=== PATIENT | female | born 1945 | race African-American/Black ===

== ENCOUNTER 2017-03-09 20:05 | Inpatient (IN) | payer OTHER ==
--- NOTE | 2017-03-09 20:23 | PDOC ---
Rapid Medical Evaluation Chief Complaint: Pain Time Seen by Provider: 03/09/17 20:17 Medical Evaluation: 03/09/17 20:18 I have performed a brief in-person evaluation of this patient. The patient presents with a chief complaint of: Abdominal Pain/Epigastric Pain/ Chest Pain Pertinent physical exam findings:none I have ordered the following: The patient will proceed to the ED for further evaluation. Patient presents to ED c/o sudden onset chest pain, epigastric pain with diaphoresis and near syncope. Patient did not want to call 911 because she did not want her symptoms to be real.
--- NOTE | 2017-03-09 20:33 | PDOC ---
History of Present Illness - History of Present Illness Initial Comments: 03/09/17 20:40 The patient is a 71 year old female, with a significant past medical history of hypertension, diabetes, and a rare blood cancer, who presents to the emergency department s/p near syncopal episode at home this evening. She states she was cooking, turned her body to the left and suddenly felt cool, clammy, and diaphoretic. She states she almost passed out. She denies falling. She reports fecal incontinence during this incident. She reports feeling nauseous at the time of her near-syncopal episdoe, but denies vomiting. At this time she complains of back pain between her scapula. She reports having a CT head in the past for blurred vision which was negative for acute findings. She denies chest pain, shortness of breath, headache and dizziness. She denies fever, chills, nausea, vomit, diarrhea and constipation. She denies dysuria, frequency, urgency and hematuria. Allergies: NKDA <Celestina Gustafson - Last Filed: 03/09/17 23:21> - General History Source: Patient <SadiDonald steen - Last Filed: 03/09/17 23:35> - General Chief Complaint: Pain Stated Complaint: CHEST PAIN Time Seen by Provider: 03/09/17 20:17 Past History <Celestina Gustafson - Last Filed: 03/09/17 23:21> - Past Medical History COPD: No GI Disorders: Yes (GERD) HTN: Yes Other medical history: Lg GB stone - Surgical History Appendectomy: Yes (AP) - Suicide/Smoking/Psychosocial Hx Smoking History: Never smoked <Donald Harris - Last Filed: 03/09/17 23:35> - Past Medical History Allergies/Adverse Reactions: Allergies Allergy/AdvReac Type Severity Reaction Status Date / Time No Known Allergies Allergy Verified 03/09/17 20:17 Home Medications: Ambulatory Orders Aspirin [ASA -] 81 mg PO DAILY 03/09/17 Chlorthalidone 25 mg PO DAILY 03/09/17 Cholecalciferol (Vitamin D3) [Vitamin D3 -] 800 unit PO DAILY 03/09/17 Latanoprost 2.5 ml OP HS 03/09/17 Review of Systems - Review of Systems Able to Perform ROS?: Yes Comments:: 03/09/17 20:40 CONSTITUTIONAL: (+) "clammy, diaphoretic, and cool". Absent: fever, chills, diaphoresis, generalized weakness, malaise, loss of appetite HEENT: Absent: rhinorrhea, nasal congestion, throat pain, throat swelling, difficulty swallowing, mouth swelling, ear pain, eye pain, visual Changes CARDIOVASCULAR: (+) near syncope. Absent: chest pain, syncope, palpitations, irregular heart rate, lightheadedness, peripheral edema RESPIRATORY: Absent: cough, shortness of breath, dyspnea with exertion, orthopnea, wheezing, stridor, hemoptysis GASTROINTESTINAL: (+) nausea. Absent: abdominal pain, abdominal distension, vomiting, diarrhea, constipation, melena, hematochezia GENITOURINARY: Absent: dysuria, frequency, urgency, hesitancy, hematuria, flank pain, genital pain MUSCULOSKELETAL: (+) pain to upper back between scapulae. Absent: arthralgia, joint swelling SKIN: Absent: rash, itching, pallor HEMATOLOGIC/IMMUNOLOGIC: Absent: easy bleeding, easy bruising, lymphadenopathy, frequent infections ENDOCRINE: Absent: unexplained weight gain, unexplained weight loss, heat intolerance, cold intolerance NEUROLOGIC: (+) bowel incontinence and near syncope. Absent: headache, focal weakness or paresthesias, dizziness, unsteady gait, seizure, mental status changes, bladder incontinence. PSYCHIATRIC: Absent: anxiety, depression, suicidal or homicidal ideation, hallucinations. <Celestina Gustafson - Last Filed: 03/09/17 23:21> *Physical Exam - Vital Signs Last Vital Signs Temp Pulse Resp BP Pulse Ox 98 F 84 20 129/90 03/09/17 20:19 03/09/17 20:19 03/09/17 20:19 03/09/17 20:19 - Physical Exam Comments: 03/09/17 20:42 GENERAL: Well developed, well nourished. Awake and alert. No acute distress. HEENT: Normocephalic, atraumatic. PERRLA, EOMI. No conjunctival pallor. Sclera are non- icteric. Moist mucous membranes. Oropharynx is clear. NECK: Supple. Full ROM. No JVD. Carotid pulses 2+ and symmetric, without bruits. No thyromegaly. No lymphadenopathy. CARDIOVASCULAR: Regular rate and rhythm. No murmurs, rubs, or gallops. Distal pulses are 2+ and symmetric. PULMONARY: No evidence of respiratory distress. Lungs clear to auscultation bilaterally. No wheezing, rales or rhonchi. ABDOMINAL: Soft. Non-tender. Non-distended. No rebound or guarding. No organomegaly. Normoactive bowel sounds. MUSCULOSKELETAL Normal range of motion at all joints. No bony deformities or tenderness. No CVA tenderness. EXTREMITIES: No cyanosis. No clubbing. No edema. No calf tenderness. SKIN: Warm and dry. Normal capillary refill. No rashes. No jaundice. NEUROLOGICAL: Alert, awake, appropriate. Cranial nerves 2-12 intact. Normoreflexic in the upper and lower extremities. Normal speech. Toes are down-going bilaterally. Gait is normal without ataxia. PSYCHIATRIC: Cooperative. Good eye contact. Appropriate mood and affect. <Celestina Gustafson - Last Filed: 03/09/17 23:21> - Vital Signs Last Vital Signs Temp Pulse Resp BP Pulse Ox 98 F 84 20 129/90 03/09/17 20:19 03/09/17 20:19 03/09/17 20:19 03/09/17 20:19 <Donald Harris - Last Filed: 03/09/17 23:35> Heart Score/ECG Review - ECG Intrepretation Comment:: 03/09/17 21:22 ECG was read by Dr. Harris at 20:13 Impresion: Normal sinus rhythm Vent rate: 67 bpm KS Interval: 158 ms QTc: 420 ms <Celestina Gustafson - Last Filed: 03/09/17 23:21> ED Treatment Course - LABORATORY CBC & Chemistry Diagram: 03/09/17 20:33 03/09/17 20:33 <Celestina Gustafson - Last Filed: 03/09/17 23:21> - LABORATORY CBC & Chemistry Diagram: 03/09/17 20:33 03/09/17 20:33 <Donald Harris - Last Filed: 03/09/17 23:35> Medical Decision Making - Medical Decision Making 03/09/17 23:21 EXAM#: TYPE/EXAM: RESULT: [id number] CT/HEAD CT WITHOUT CONTRAST Cranial CT without contrast Clinical information: dizziness Multiplanar imaging was performed. Intravenous contrast was not administered. No intracranial hemorrhage is seen. There is no discrete infarct within the limitations of CT. No gross mass lesion is noted. There is no definite abnormal attenuation. No extra-axial fluid collection is noted. Involutional changes are seen with minimal ventricular dilatation. No calvarial defect is noted. Impression: No CT evidence of acute intracranial pathology. A small amount of fluid is seen within the left mastoid air cells inferiorly. Reported By: Lexx Chan MD 03/09/17 [id number] <Celestina Gustafson - Last Filed: 03/09/17 23:21> - Medical Decision Making 03/09/17 23:29 Dr. Harris: The scribe's documentation has been prepared under my direction and personally reviewed by me in its entirery. I confirm that the note above accurately reflects all work, treatment, procedures, and medical decision making performed by me. Originally ordered a ct scan to visualize the aorta. However, BUN/ Cr are very high. Pt states she has no h/o renal issues. Will admit pt and decide next course for evaluation. <Donald Harris - Last Filed: 03/09/17 23:35> *DC/Admit/Observation/Transfer - Attestations Scribe Attestion: 03/09/17 20:42 Documentation prepared by Celestina Gustafson, acting as medical record coder for Donald Harris DO <Celestina Gustafson - Last Filed: 03/09/17 23:21> - Discharge Dispostion Admit: Yes <Donald Harris - Last Filed: 03/09/17 23:35> Diagnosis at time of Disposition: Near syncope - Discharge Dispostion Condition at time of disposition: Stable
[2017-03-09 21:28] LABS: URINE APPEARANCE CLOUDY; URINE BILIRUBIN NEGATIVE (NEGATIVE); URINE BLOOD NEGATIVE (NEGATIVE); URINE COLOR AMBER; URINE GLUCOSE (UA) NEGATIVE (NEGATIVE); URINE KETONE TRACE (NEGATIVE); URINE NITRITE NEGATIVE (NEGATIVE); URINE PROTEIN NEGATIVE (NEGATIVE); URINE UROBILINOGEN 4.0 E.U/dl mg/dL (0.2-1.0)
[2017-03-09 21:31] LABS: BASOPHIL 0.8 % (0-2.0); EOSINOPHIL 0.4 % (0-4.5); MCH 31.9 pg (25.7-33.7); MCHC 34.8 g/dl (32.0-36.0); MEAN CELL VOLUME 91.6 fl (80-96); MEAN PLT VOLUME 9.2 fl (7.5-11.1); NEUTROPHILS 59.2 % (42.8-82.8); PLATELET COUNT 204 K/MM3 (134-434); RDW 13.9 % (11.6-15.6); WHITE BLOOD COUNT 7.2 K/mm3 (4.0-10.0)
[2017-03-09 21:42] LABS: INR 1.07 (0.82-1.09); PROTHROMBIN TIME (PATIENT) 12.1 SEC (9.98-11.88)
[2017-03-09 22:47] LABS: MAGNESIUM 1.9 mg/dL (1.8-2.4)
[2017-03-09 23:10] LABS: ALBUMIN 3.6 g/dl (3.4-5.0); ANION GAP 8 (8-16); CALCIUM 9.3 mg/dL (8.5-10.1); CO2 28 mmol/L (21-32); CREATININE 2.3 mg/dL (0.55-1.02); GLUCOSE,RANDOM 140 mg/dL (74-106); SGOT/AST 16 U/L (15-37); SGPT/ALT 23 U/L (12-78)
[2017-03-09 23:14] LABS: ALK PHOS 105 U/L (45-117); BILIRUBIN,TOTAL 0.4 mg/dL (0.2-1.0); CPK 137 IU/L (26-192); TOT PROT 7.5 g/dl (6.4-8.2); TROPONIN I < 0.02 ng/ml (0.00-0.05)
--- NOTE | 2017-03-10 00:34 | PN ---
Teaching Attending Note Name of Resident: Claudia Benedict ATTENDING PHYSICIAN STATEMENT I saw and evaluated the patient. I reviewed the resident's note and discussed the case with the resident. I agree with the resident's findings and plan as documented. SUBJECTIVE: 71 year old female that presents today c/o acute onset of sub sternal chest discomfort, 5/10 in intensity , non radiating , associated with acute onset of SOB, nausea , diaphoresis and followed by pre syncopal event x 3. She used ice pack to her neck which alleviated her symptoms partially and she was able to get a ride to ED . She reports history of 4 days of upper respiratory " typical sinus " infection, loss of appetite and nausea preceding to todays event . ROS is significant for b/l calve pain PMH HTN Cholelithiasis Arthritis Knee Leukemia vs Lymphoma ( patient is not sure but states blood malignancy ) Appendectomy Family History Lung Cancer - sister Breast Cancer - cousin DVT - mother OBJECTIVE: Vital Signs Temperature 98 F 03/09/17 20:19 Pulse Rate 84 03/09/17 20:19 Respiratory Rate 20 03/09/17 20:19 Blood Pressure 129/90 03/09/17 20:19 O2 Sat by Pulse Oximetry (%) CARDIOVASCULAR: Regular rate and rhythm. No murmurs, rubs, or gallops. Distal pulses are 2+ and symmetric. PULMONARY: No evidence of respiratory distress. Lungs clear to auscultation bilaterally. No wheezing, rales or rhonchi. EXTREMITIES: No cyanosis. No clubbing. No edema. CBC, BMP 03/09/17 20:33 03/09/17 20:33 ASSESSMENT AND PLAN: 1. Acute Renal Failure - likely secondary to severe dehydration due to low po intake and diuretics. - hold diuretics - IVF 2L of NS at 125/hr then encourage PO - repeat BMP - obtain UA - If no improvement - will get US and urine studies 2. Chest discomfort associated with SOB and pre syncopal episode( transient hypotension) - completely resolved . Atypical presentation for cardiac pain . EKG - no acute findings . PE small can not be excluded . DDimer could be false positive - US doppler R/o DVT - telemetry - repeat cardiac enzyme - Repeat EKG for chest pain -repeat troponin 3.HTN- suboptimal control - hold diuretics - lopressor for SBP > 165 DBP above 90 4. History of malignancy of unknown type ( states its blood) - under care of her oncologist - will obtain prior records 5. DVT PPX - Heparin SC
--- NOTE | 2017-03-10 00:54 | HP ---
CHIEF COMPLAINT: Presyncopial episode, chest pain PCP: n/a HISTORY OF PRESENT ILLNESS: Patient is a 71 yo F with a PMHx of HTN, Arthritis, cholelithiasis, HPV, chronic sinusitis, rare blood cancer (2013), presented today because of 5/10, non-radiating, substernal, chest pain with dizziness and SOB that started around 7pm, followed by a presyncopal epiosde while walking in the kitchen. She also reports having R jaw pain and sweating. Patient said she never experienced similar symptoms before. She applied Ice on her neck which alleviated the symptoms. She also reports she had sinusitis since Tuesday with fever and nausea, and has been bed bound since then. She also complains of decreased appetite and poor oral intake since Tuesday. She also endorsed intermittent Left Lower extremity calf pain. Patient is on Chlorthalidone 25mg for HTN. Says she has noticed an increase in urinary frequency. Patient denies LOC, cough, abdominal pain, diarrhea, vertigo, numbness and tingling. ER course was notable for: (1) Creatinine 2.3 (2) EKG: Normal sinus rhythm, negative trops (3) VS WNL, afebrile Recent Travel: n/a PAST MEDICAL HISTORY: HTN, Arthritis, HPV, chronic sinusitis, cholelithiasis, rare blood cancer (2013) PAST SURGICAL HISTORY: appendectomy 1959, tonsillectomy 1966, ganglion cyst 1972 , bone marrow sample (08/01) Social History: Smoking: n/a Alcohol: n/a Drugs: n/a Family History: sister with lung cancer, mother from lung clot in her 70' s. Allergies No Known Allergies Allergy (Verified 03/09/17 20:17) HOME MEDICATIONS: Home Medications Medication Instructions Recorded Aspirin [ASA -] 81 mg PO DAILY 03/09/17 Chlorthalidone 25 mg PO DAILY 03/09/17 Cholecalciferol (Vitamin D3) 800 unit PO DAILY 03/09/17 [Vitamin D3 -] Latanoprost 2.5 ml OP HS 03/09/17 REVIEW OF SYSTEMS CONSTITUTIONAL: fever, diaphoresis, loss of appetite Absent: chills, generalized weakness, malaise, weight change HEENT: Absent: rhinorrhea, nasal congestion, throat pain, throat swelling, difficulty swallowing, mouth swelling, ear pain, eye pain, visual changes CARDIOVASCULAR: lightheadedness, chest pain Absent: syncope, palpitations, irregular heart rate, peripheral edema RESPIRATORY: SOB Absent: cough, dyspnea with exertion, orthopnea, wheezing, stridor, hemoptysis GASTROINTESTINAL: nausea Absent: abdominal pain, abdominal distension, vomiting, diarrhea, constipation, melena, hematochezia GENITOURINARY: increased frequency Absent: dysuria, urgency, hesitancy, hematuria, flank pain, genital pain MUSCULOSKELETAL: Absent: myalgia, arthralgia, joint swelling, back pain, neck pain SKIN: Absent: rash, itching, pallor HEMATOLOGIC/IMMUNOLOGIC: Absent: easy bleeding, easy bruising, lymphadenopathy, frequent infections ENDOCRINE: Absent: unexplained weight gain, unexplained weight loss, heat intolerance, cold intolerance NEUROLOGIC: Absent: headache, focal weakness or paresthesias, dizziness, unsteady gait, seizure, mental status changes, bladder or bowel incontinence PSYCHIATRIC: Absent: anxiety, depression, suicidal or homicidal ideation, hallucinations. PHYSICAL EXAMINATION Vital Signs - 24 hr 03/09/17 20:19 Temperature 98 F Pulse Rate 84 Respiratory 20 Rate Blood Pressure 129/90 GENERAL: Awake, alert, and fully oriented, in no acute distress. HEAD: Normal with no signs of trauma. EYES: Pupils equal, round and reactive to light, extraocular movements intact, sclera anicteric EARS, NOSE, THROAT: nares patent, oropharynx clear without exudates. Dry mucous membranes NECK: supple LUNGS: Breath sounds equal, clear to auscultation bilaterally. No wheezes, and no crackles. No accessory muscle use. HEART: Regular rate and rhythm, normal S1 and S2 without murmur, rub or gallop. ABDOMEN: Soft, nontender, not distended, normoactive bowel sounds, no guarding MUSCULOSKELETAL: Normal range of motion at all joints. No CVA tenderness. UPPER EXTREMITIES: 2+ pulses, warm, well-perfused. No cyanosis. No clubbing. No peripheral edema. LOWER EXTREMITIES: 2+ pulses, warm, well-perfused. No calf tenderness. No peripheral edema. NEUROLOGICAL: Cranial nerves II-XII intact. Normal speech. PSYCHIATRIC: Cooperative. Good eye contact. Appropriate mood and affect. SKIN: Warm, dry Laboratory Results - last 24 hr 03/09/17 03/09/17 03/09/17 20:33 20:33 20:33 WBC 7.2 RBC 3.50 L Hgb 11.1 Hct 32.0 L MCV 91.6 MCH 31.9 MCHC 34.8 RDW 13.9 Plt Count 204 MPV 9.2 Neutrophils % 59.2 Lymphocytes % 25.8 Monocytes % 13.8 H Eosinophils % 0.4 Basophils % 0.8 PT with INR INR Sodium 140 Potassium 3.8 Chloride 104 Carbon Dioxide 28 Anion Gap 8 BUN 36 H Creatinine 2.3 H Creat Clearance w eGFR 21.02 Random Glucose 140 H Calcium 9.3 Magnesium Total Bilirubin 0.4 AST 16 ALT 23 Alkaline Phosphatase 105 Creatine Kinase 137 Troponin I < 0.02 Total Protein 7.5 Albumin 3.6 Lipase Urine Color Urine Appearance Urine pH Ur Specific [place] Urine Protein Urine Glucose (UA) Urine Ketones Urine Blood Urine Nitrite Urine Bilirubin Urine Urobilinogen Blood Type O POSITIVE Antibody Screen Negative 03/09/17 03/09/17 03/09/17 20:33 20:33 21:15 WBC RBC Hgb Hct MCV MCH MCHC RDW Plt Count MPV Neutrophils % Lymphocytes % Monocytes % Eosinophils % Basophils % PT with INR 12.10 H INR 1.07 Sodium Potassium Chloride Carbon Dioxide Anion Gap BUN Creatinine Creat Clearance w eGFR Random Glucose Calcium Magnesium 1.9 Total Bilirubin AST ALT Alkaline Phosphatase Creatine Kinase Troponin I Total Protein Albumin Lipase 224 Urine Color Missy Urine Appearance Cloudy Urine pH 5.0 Ur Specific [place] 1.024 Urine Protein Negative Urine Glucose (UA) Negative Urine Ketones Trace H Urine Blood Negative Urine Nitrite Negative Urine Bilirubin Negative Urine Urobilinogen 4.0 e.u/dl H Blood Type Antibody Screen ASSESSMENT/PLAN: Patient is a 71 yo F with a PMHx of HTN, Arthritis, HPV, "rare blood cancer ( 2013)", presented to the ED because of pre-syncopial episode and chest pain. #Presyncopial episode - volume depletion vs PE -on chlorothalidone 25mg daily PO, which could be possible cause of dehydration. Recent poor oral intake and appetite since Tuesday. -Venous duplex b/l LE to R/O DVT as patient has multiple cormorbidites (obesity , decreased physical activity, hx of cancer, Fx history) -one episode of presyncope, will keep in tele for monitoring of any overnight event. If any event overnight, will order cardiac workup. -IV Fluids, normal saline 100 cc/ hour -Monitor Vitals, orthostatic BP -Follow up AM labs #Acute Kidney Injury -likely prerenal azotemia -creatinine 2.3 -IV fluids, Normal Saline 100cc/hour -follow up AM labs -monitor intake/output -if creatinine does not improve after IV fluids, will need to order renal workup #Atypical Chest pain -EKG unremarkable for acute changes -Trop negative -Pain more localized towards epigastric, right sub-diaphragmatic -obese, normally ambulates, but has decreased daily physical activity since Tuesday while sick. -venous duplex b/l lower extremities -tele, cardiac monitoring -cont ASA 81mg (home med) -repeat EKG trop #History of Cancer -Unknown type, patient says "rare blood cancer". -Oncologist: Dr. Carlin [phone] -Obtain records from oncologist #HTN -held chlorothalidone -will monitor BP #GERD -continue home med Omeprazole 20mg #Glaucoma -cont home med, Latanoprost #History of Chronic Sinusitis #FEN -IV fluids, NS 100 cc/hour -WNL -Sodium restricted diet #PPX: Heparin SQ TID #Dispo: Tele Visit type - Emergency Visit Emergency Visit: Yes Care time: The patient presented to the Emergency Department on the above date and was hospitalized for further evaluation of their emergent condition. - New Patient This patient is new to me today: Yes Date on this admission: 03/10/17 - Critical Care Critical Care patient: No
[2017-03-10] MEDS ORDERED: PANTOPRAZOLE SODIUM 40 MG/100 ML BAG IVPB ONE (02:12)
[2017-03-10] MEDS: SODIUM CHLORIDE 1,000 ML IV SCH ×2 (02:22→12:40)
[2017-03-10] MEDS: PANTOPRAZOLE 40 MG TABLET (FP) PO SCH ×2 (02:22→09:17)
[2017-03-10 03:46] VITALS: BMI 40.6
[2017-03-10] MEDS: HEPARIN NA (PORCINE) 5,000 UNITS/ML 1ML VIAL SQ SCH ×3 (06:19→21:11)
[2017-03-10 08:08] LABS: MCH 30.8 pg (25.7-33.7); MCHC 33.4 g/dl (32.0-36.0); MEAN CELL VOLUME 92.4 fl (80-96); PLATELET COUNT 216 K/MM3 (134-434); RDW 13.4 % (11.6-15.6); WHITE BLOOD COUNT 7.6 K/mm3 (4.0-10.0)
[2017-03-10 08:12] LABS: ALBUMIN 3.2 g/dl (3.4-5.0); ALK PHOS 100 U/L (45-117); ANION GAP 7 (8-16); BILIRUBIN,TOTAL 0.4 mg/dL (0.2-1.0); CALCIUM 8.8 mg/dL (8.5-10.1); CO2 27 mmol/L (21-32); CREATININE 1.9 mg/dL (0.55-1.02); GLUCOSE,RANDOM 103 mg/dL (74-106); MAGNESIUM 1.9 mg/dL (1.8-2.4); PHOSPHOROUS 3.7 mg/dL (2.5-4.9); SGOT/AST 12 U/L (15-37); SGPT/ALT 21 U/L (12-78); TOT PROT 7.1 g/dl (6.4-8.2)
[2017-03-10] MEDS: ASPIRIN 81 MG CHEWABLE TABLETS PO SCH (09:17)
[2017-03-10] MEDS ORDERED: CHOLECALCIFEROL (VITAMIN D3) 400 UNIT TABLET (FP) PO SCH (10:00)
[2017-03-10 10:37] LABS: URINE LEUK ESTERASE Negative (NEGATIVE)
--- NOTE | 2017-03-10 12:49 | PN ---
Progress Note (short form) - Note Progress Note: Subjective: Denies CP , or SOB , reports being dry for days , had substernal CP x 30 min then improved . she reports feeling light headed with ambulation and standing up. Objective: Vital Signs: Last Vital Signs Temp Pulse Resp BP Pulse Ox 98.2 F 82 18 129/78 98 03/10/17 09:00 03/10/17 09:00 03/10/17 09:00 03/10/17 09:00 03/10/17 09:00 Laboratory Results - last 24 hr 03/09/17 03/09/17 03/09/17 20:33 20:33 20:33 WBC 7.2 RBC 3.50 L Hgb 11.1 Hct 32.0 L MCV 91.6 MCH 31.9 MCHC 34.8 RDW 13.9 Plt Count 204 MPV 9.2 Neutrophils % 59.2 Lymphocytes % 25.8 Monocytes % 13.8 H Eosinophils % 0.4 Basophils % 0.8 PT with INR INR Sodium 140 Potassium 3.8 Chloride 104 Carbon Dioxide 28 Anion Gap 8 BUN 36 H Creatinine 2.3 H Creat Clearance w eGFR 21.02 Random Glucose 140 H Calcium 9.3 Phosphorus Magnesium Total Bilirubin 0.4 AST 16 ALT 23 Alkaline Phosphatase 105 Creatine Kinase 137 Troponin I < 0.02 Total Protein 7.5 Albumin 3.6 Lipase Urine Color Urine Appearance Urine pH Ur Specific [place] Urine Protein Urine Glucose (UA) Urine Ketones Urine Blood Urine Nitrite Urine Bilirubin Urine Urobilinogen Ur Leukocyte Esterase Blood Type O POSITIVE Antibody Screen Negative 03/09/17 03/09/17 03/09/17 20:33 20:33 21:15 WBC RBC Hgb Hct MCV MCH MCHC RDW Plt Count MPV Neutrophils % Lymphocytes % Monocytes % Eosinophils % Basophils % PT with INR 12.10 H INR 1.07 Sodium Potassium Chloride Carbon Dioxide Anion Gap BUN Creatinine Creat Clearance w eGFR Random Glucose Calcium Phosphorus Magnesium 1.9 Total Bilirubin AST ALT Alkaline Phosphatase Creatine Kinase Troponin I Total Protein Albumin Lipase 224 Urine Color Missy Urine Appearance Cloudy Urine pH 5.0 Ur Specific [place] 1.024 Urine Protein Negative Urine Glucose (UA) Negative Urine Ketones Trace H Urine Blood Negative Urine Nitrite Negative Urine Bilirubin Negative Urine Urobilinogen 4.0 e.u/dl H Ur Leukocyte Esterase Negative Blood Type Antibody Screen 03/10/17 03/10/17 03/10/17 07:30 07:30 07:30 WBC 7.6 RBC 3.30 L Hgb 10.2 L Hct 30.5 L MCV 92.4 MCH 30.8 MCHC 33.4 RDW 13.4 Plt Count 216 MPV 9.0 Neutrophils % Lymphocytes % Monocytes % Eosinophils % Basophils % PT with INR INR Sodium 140 Potassium 3.7 Chloride 106 Carbon Dioxide 27 Anion Gap 7 L BUN 36 H Creatinine 1.9 H Creat Clearance w eGFR 26.21 Random Glucose 103 D Calcium 8.8 Phosphorus 3.7 Magnesium 1.9 Total Bilirubin 0.4 AST 12 L D ALT 21 Alkaline Phosphatase 100 Creatine Kinase Troponin I < 0.02 Total Protein 7.1 Albumin 3.2 L Lipase Urine Color Urine Appearance Urine pH Ur Specific [place] Urine Protein Urine Glucose (UA) Urine Ketones Urine Blood Urine Nitrite Urine Bilirubin Urine Urobilinogen Ur Leukocyte Esterase Blood Type Antibody Screen Physical Exam: NAD , dry MM , round equal reactive pupils Cv : RRR, nO JVD . 2/6 SM at RUSB, and RUSB. Lungs : CTAB ABd: soft, Obese , NT, ND LE : no edema or erythema. Assessment/Plan: 71 y/o lady with h/o HTN, chronic synusitis , questionable blood disorder who presented with chest discomfort and pain with light headedness. She was found to have acute renal failure 1- CP: unlikely ACS . could be due to orthostatic hypotension , or arrhythmias . EKG with NSR and q wave in III. tele with PVCs. despite the possibiility of blood malignancy , PE is unlikely , WELLS score of 0 . she has NO tachycardia , no SOB , no Hypoxia and no other signs . US Neg for DVT - cont tele - treat volume depletion - orthostatic VS - echo 2- JEOVANNY : due to prerenal azotemia, given being on thiazide and improvement in cr with IVF - check urine electrolytes for Fe Ura , unfortunately , not done before IVF - check renal US - cont IVF - Hold hydrochlorothyaside 3- h/o Possible hematologic malignancy, confirm withher commissioner of relocation services tomorrow Home meds were reviewed with her and updated in EMR 3- Visit type - Emergency Visit Emergency Visit: Yes ED Registration Date: 03/09/17 Care time: The patient presented to the Emergency Department on the above date and was hospitalized for further evaluation of their emergent condition. - New Patient This patient is new to me today: Yes Date on this admission: 03/10/17 - Critical Care Critical Care patient: No
[2017-03-10 20:12] LABS: URINE CREATININE 55.4 mg/dL (20-320)
[2017-03-10] MEDS ORDERED: PT OWN MED DRAWER 7, Y5N ONE (21:07)
[2017-03-10] MEDS: LATANOPROST 0.005% OPHTH SOLN 2.5ML BOTTLE OU SCH (21:11)
--- NOTE | 2017-03-10 21:57 | EKG ---
Test Reason : Blood Pressure : / mmHG Vent. Rate : 067 BPM Atrial Rate : 067 BPM P-R Int : 158 ms QRS Dur : 086 ms QT Int : 398 ms P-R-T Axes : 009 015 038 degrees QTc Int : 420 ms NORMAL SINUS RHYTHM NORMAL ECG NO PREVIOUS ECGS AVAILABLE Confirmed by MIC RAYO MD ([id number]) on 03/10/2017 9:56:52 PM Referred By: Confirmed By:MIC RAYO MD
[2017-03-11] MEDS: SODIUM CHLORIDE 1,000 ML IV SCH (00:56)
[2017-03-11] MEDS: HEPARIN NA (PORCINE) 5,000 UNITS/ML 1ML VIAL SQ SCH ×3 (05:52→21:18)
[2017-03-11 07:55] LABS: ANION GAP 9 (8-16); CALCIUM 8.8 mg/dL (8.5-10.1); CO2 23 mmol/L (21-32); CREATININE 1.4 mg/dL (0.55-1.02); GLUCOSE,RANDOM 102 mg/dL (74-106)
[2017-03-11] MEDS ORDERED: PT OWN MED DRAWER 7, Y5N ONE ×2 (09:30→21:17)
[2017-03-11] MEDS: SODIUM CHLORIDE 0.45% 1,000 ML IV SCH (10:38)
[2017-03-11] MEDS: PANTOPRAZOLE 40 MG TABLET (FP) PO SCH (10:39)
[2017-03-11] MEDS: ASPIRIN 81 MG CHEWABLE TABLETS PO SCH (10:39)
--- NOTE | 2017-03-11 16:42 | PN ---
Physical Exam: SUBJECTIVE: Patient seen and examined. Pt feels well today. Pt denies chest pain, sob, fever, chills. No overnight events. OBJECTIVE: Vital Signs Period Temp Pulse Resp BP Sys/Crane Pulse Ox Last 24 Hr 97.5 F-98.2 F 66-82 18-20 118-152/58-74 98-98 GENERAL: The patient is awake, alert, and fully oriented, in no acute distress. HEAD: Normal with no signs of trauma. EYES: Extraocular movements intact, sclera anicteric, conjunctiva clear. No ptosis. ENT: Moist mucous membranes. NECK: Trachea midline, supple. LUNGS: Breath sounds equal, clear to auscultation bilaterally, no wheezes, no crackles, no accessory muscle use. HEART: Regular rate and rhythm, S1, S2 without murmur, rub or gallop. ABDOMEN: Soft, nontender, nondistended. EXTREMITIES: Warm, well-perfused, no edema. NEUROLOGICAL: Cranial nerves II through XII grossly intact. Normal speech, steady gait. PSYCH: Normal mood, normal affect. SKIN: Warm, dry, normal turgor, no rashes or lesions noted Laboratory Results - last 24 hr 03/10/17 03/11/17 15:00 06:00 Sodium 142 Potassium 4.0 Chloride 110 H Carbon Dioxide 23 Anion Gap 9 BUN 23 H D Creatinine 1.4 H D Random Glucose 102 Calcium 8.8 Ur Random Sodium 41 Ur Random Urea Nitrogn 377 Urine Creatinine 55.4 Active Medications Generic Name Dose Route Start Last Admin Trade Name Freq PRN Reason Stop Dose Admin Aspirin 81 mg 03/10/17 10:00 03/11/17 10:39 Asa - PO 81 mg DAILY JUICE Administration Heparin Sodium (Porcine) 5,000 unit 03/10/17 06:00 03/11/17 15:45 Heparin - SQ 5,000 unit TID JUICE Administration Sodium Chloride 1,000 mls @ 100 mls/hr 03/11/17 10:30 03/11/17 10:38 1/2 Normal Saline IV 100 mls/hr ASDIR JUICE Administration Latanoprost 1 drop 03/10/17 22:00 03/10/17 21:11 Xalatan 0.005% Eye Drops - OU 1 drop HS JUICE Administration Pantoprazole Sodium 40 mg 03/10/17 01:45 03/11/17 10:39 Protonix - PO 40 mg DAILY JUICE Administration IMAGIN03/09/[address] -> no acute intracranial pathology. Small amount of fluid in Left mastoid air cells inferiorly. 03/09/17 CXR -> no acute pathology 03/10/17 Vascular Study -> no DVTs in isaias LE 03/11/17 Renal US -> morphologically normal kidneys with no evidence of hydronephrosis or acute pathology. 03/11/17 Echo -> normal Left ventricular systolic function. ASSESSMENT/PLAN: 71yo F with PMH of htn, chronic sinusitis, presented with substernal chest pain , admitted for ACS rule-out. # chest pain - not likely ACS - improved - echo reveals normal Left ventricular systolic function # JEOVANNY - improved - Renal US reveals morphologically normal kidneys - continue IVFs - continue to hold Chlorthalidone # hx of possible hematologic malignancy - Release of Patient Information form completed and faxed to Dr. Lance Yusuf's office (fax #: [phone]), confirmation received. Office was called and notified that form was coming and what information was being requested. No records were faxed to the hospital. # FEN - Fluids: 1/2 NS @ 100 ml/hr - Electrolytes: wnl, continue to monitor - Nutrition: low sodium diet # DVT prophylaxis - Heparin TID Visit type - Emergency Visit Emergency Visit: Yes ED Registration Date: 03/09/17 Care time: The patient presented to the Emergency Department on the above date and was hospitalized for further evaluation of their emergent condition. - New Patient This patient is new to me today: Yes Date on this admission: 03/11/17 - Critical Care Critical Care patient: No
--- NOTE | 2017-03-11 18:20 | PN ---
Teaching Attending Note Name of Resident: Monique Botello ATTENDING PHYSICIAN STATEMENT I saw and evaluated the patient. I reviewed the resident's note and discussed the case with the resident. I agree with the resident's findings and plan as documented. SUBJECTIVE: Patient feels better with no acute distress, no shortness of breath, no nausea or vomiting. No chest pain. OBJECTIVE: Vital Signs Temperature 98.9 F 03/11/17 18:06 Pulse Rate 71 03/11/17 18:06 Respiratory Rate 20 03/11/17 18:06 Blood Pressure 133/71 03/11/17 18:06 O2 Sat by Pulse Oximetry (%) 100 03/11/17 09:00 CBCD WBC 7.6 K/mm3 (4.0-10.0) 03/10/17 07:30 RBC 3.30 M/mm3 (3.60-5.2) L 03/10/17 07:30 Hgb 10.2 GM/dL (10.7-15.3) L 03/10/17 07:30 Hct 30.5 % (32.4-45.2) L 03/10/17 07:30 MCV 92.4 fl (80-96) 03/10/17 07:30 MCHC 33.4 g/dl (32.0-36.0) 03/10/17 07:30 RDW 13.4 % (11.6-15.6) 03/10/17 07:30 Plt Count 216 K/MM3 (134-434) 03/10/17 07:30 MPV 9.0 fl (7.5-11.1) 03/10/17 07:30 CMP Sodium 142 mmol/L (136-145) 03/11/17 06:00 Potassium 4.0 mmol/L (3.5-5.1) 03/11/17 06:00 Chloride 110 mmol/L (98-107) H 03/11/17 06:00 Carbon Dioxide 23 mmol/L (21-32) 03/11/17 06:00 Anion Gap 9 (8-16) 03/11/17 06:00 BUN 23 mg/dL (7-18) H D 03/11/17 06:00 Creatinine 1.4 mg/dL (0.55-1.02) H D 03/11/17 06:00 Creat Clearance w eGFR 26.21 (>60) 03/10/17 07:30 Random Glucose 102 mg/dL (74-106) 03/11/17 06:00 Calcium 8.8 mg/dL (8.5-10.1) 03/11/17 06:00 Total Bilirubin 0.4 mg/dL (0.2-1.0) 03/10/17 07:30 AST 12 U/L (15-37) L D 03/10/17 07:30 ALT 21 U/L (12-78) 03/10/17 07:30 Alkaline Phosphatase 100 U/L (45-117) 03/10/17 07:30 Total Protein 7.1 g/dl (6.4-8.2) 03/10/17 07:30 Albumin 3.2 g/dl (3.4-5.0) L 03/10/17 07:30 CARDIAC ENZYMES Creatine Kinase 137 IU/L (26-192) 03/09/17 20:33 Troponin I < 0.02 ng/ml (0.00-0.05) 03/10/17 07:30 Current Medications Generic Name Dose Route Start Last Admin Trade Name Michaelq PRN Reason Stop Dose Admin Aspirin 81 mg 03/10/17 10:00 03/11/17 10:39 Asa - PO 81 mg DAILY JUICE Administration Heparin Sodium (Porcine) 5,000 unit 03/10/17 06:00 03/11/17 15:45 Heparin - SQ 5,000 unit TID JUICE Administration Sodium Chloride 1,000 mls @ 100 mls/hr 03/11/17 10:30 03/11/17 10:38 1/2 Normal Saline IV 100 mls/hr ASDIR JUICE Administration Latanoprost 1 drop 03/10/17 22:00 03/10/17 21:11 Xalatan 0.005% Eye Drops - OU 1 drop HS JUICE Administration Pantoprazole Sodium 40 mg 03/10/17 01:45 03/11/17 10:39 Protonix - PO 40 mg DAILY JUICE Administration Home Medications Medication Instructions Recorded Aspirin [ASA -] 81 mg PO DAILY 03/09/17 Chlorthalidone 25 mg PO DAILY 03/09/17 Latanoprost 2.5 ml OP HS 03/09/17 Omeprazole 20 mg PO DAILY 03/10/17 Laboratory Tests 03/09/17 03/10/17 03/10/17 20:33 07:30 07:30 BUN 36 H 36 H Creatinine 2.3 H 1.9 H Troponin I < 0.02 < 0.02 03/11/17 06:00 BUN 23 H D Creatinine 1.4 H D Troponin I Physical Exam: NAD , dry MM , round equal reactive pupils Cv : RRR, no JVD . 2/6 SM , S1S2 positive Lungs : CTAB ABd: soft, Obese , NT, ND LE : no edema or erythema. Neuro:[id number] Assessment/Plan: Patient is a 71 y/o lady with h/o HTN, chronic synusitis , questionable blood disorder who presented with chest discomfort and pain with light headedness. She was found to have acute renal failure # Atypical CP: 2 sets of troponin negative , EKG NSR, q wave in lead 3, PVCs, Echo is pending # Acute renal failure IVF improving due to dehydration. will continue to hole Htcz, check renal US # Acute dehydration on IVF continue # Patient states that she has some blood cancer but being watched , was never treated for it. Home meds were reviewed with her and updated in EMR DVT Px: heparin sq
[2017-03-11] MEDS: LATANOPROST 0.005% OPHTH SOLN 2.5ML BOTTLE OU SCH (21:18)
[2017-03-12] MEDS: HEPARIN NA (PORCINE) 5,000 UNITS/ML 1ML VIAL SQ SCH ×3 (05:34→21:22)
[2017-03-12] MEDS: SODIUM CHLORIDE 0.45% 1,000 ML IV SCH (05:35)
[2017-03-12] MEDS: ASPIRIN 81 MG CHEWABLE TABLETS PO SCH (09:31)
[2017-03-12] MEDS: PANTOPRAZOLE 40 MG TABLET (FP) PO SCH (09:31)
--- NOTE | 2017-03-12 09:50 | PN ---
Progress Note (short form) - Note Progress Note: Patient is feeling better, with no acute distress. No shortness of breath, no nausea or vomiting, tolerating diet well. Vital Signs Temperature 98.1 F 03/12/17 06:00 Pulse Rate 69 03/12/17 06:00 Respiratory Rate 20 03/12/17 06:00 Blood Pressure 142/69 03/12/17 06:00 O2 Sat by Pulse Oximetry (%) 96 03/11/17 21:00 GENERAL: The patient is awake, alert, and fully oriented, in no acute distress. HEAD: Normal with no signs of trauma. EYES: Extraocular movements intact, sclera anicteric, conjunctiva clear. No ptosis. ENT: Moist mucous membranes. NECK: Trachea midline, supple. LUNGS: Breath sounds equal, clear to auscultation bilaterally, no wheezes, no crackles, no accessory muscle use. HEART: Regular rate and rhythm, S1, S2 without murmur, rub or gallop. ABDOMEN: Soft, nontender, nondistended. EXTREMITIES: Warm, well-perfused, no edema. NEUROLOGICAL: Cranial nerves II through XII grossly intact. Normal speech, steady gait. PSYCH: Normal mood, normal affect. SKIN: Warm, dry, normal turgor, no rashes or lesions noted CBCD WBC 7.6 K/mm3 (4.0-10.0) 03/10/17 07:30 RBC 3.30 M/mm3 (3.60-5.2) L 03/10/17 07:30 Hgb 10.2 GM/dL (10.7-15.3) L 03/10/17 07:30 Hct 30.5 % (32.4-45.2) L 03/10/17 07:30 MCV 92.4 fl (80-96) 03/10/17 07:30 MCHC 33.4 g/dl (32.0-36.0) 03/10/17 07:30 RDW 13.4 % (11.6-15.6) 03/10/17 07:30 Plt Count 216 K/MM3 (134-434) 03/10/17 07:30 MPV 9.0 fl (7.5-11.1) 03/10/17 07:30 CMP Sodium 142 mmol/L (136-145) 03/11/17 06:00 Potassium 4.0 mmol/L (3.5-5.1) 03/11/17 06:00 Chloride 110 mmol/L (98-107) H 03/11/17 06:00 Carbon Dioxide 23 mmol/L (21-32) 03/11/17 06:00 Anion Gap 9 (8-16) 03/11/17 06:00 BUN 23 mg/dL (7-18) H D 03/11/17 06:00 Creatinine 1.4 mg/dL (0.55-1.02) H D 03/11/17 06:00 Creat Clearance w eGFR 26.21 (>60) 03/10/17 07:30 Random Glucose 102 mg/dL (74-106) 03/11/17 06:00 Calcium 8.8 mg/dL (8.5-10.1) 03/11/17 06:00 Total Bilirubin 0.4 mg/dL (0.2-1.0) 03/10/17 07:30 AST 12 U/L (15-37) L D 03/10/17 07:30 ALT 21 U/L (12-78) 03/10/17 07:30 Alkaline Phosphatase 100 U/L (45-117) 03/10/17 07:30 Total Protein 7.1 g/dl (6.4-8.2) 03/10/17 07:30 Albumin 3.2 g/dl (3.4-5.0) L 03/10/17 07:30 repeat creatinine is 1.6 CARDIAC ENZYMES Creatine Kinase 137 IU/L (26-192) 03/09/17 20:33 Troponin I < 0.02 ng/ml (0.00-0.05) 03/10/17 07:30 Current Medications Generic Name Dose Route Start Last Admin Trade Name Freq PRN Reason Stop Dose Admin Aspirin 81 mg 03/10/17 10:00 03/12/17 09:31 Asa - PO 81 mg DAILY JUICE Administration Heparin Sodium (Porcine) 5,000 unit 03/10/17 06:00 03/12/17 05:34 Heparin - SQ 5,000 unit TID JUICE Administration Sodium Chloride 1,000 mls @ 100 mls/hr 03/11/17 10:30 03/12/17 05:35 1/2 Normal Saline IV 100 mls/hr ASDIR JUICE Administration Latanoprost 1 drop 03/10/17 22:00 03/11/17 21:18 Xalatan 0.005% Eye Drops - OU 1 drop HS JUICE Administration Pantoprazole Sodium 40 mg 03/10/17 01:45 03/12/17 09:31 Protonix - PO 40 mg DAILY JUICE Administration Home Medications Medication Instructions Recorded Aspirin [ASA -] 81 mg PO DAILY 03/09/17 Chlorthalidone 25 mg PO DAILY 03/09/17 Latanoprost 2.5 ml OP HS 03/09/17 Omeprazole 20 mg PO DAILY 03/10/17 Assessment/Plan: Patient is a 71 y/o lady with h/o HTN, chronic synusitis , questionable blood disorder who presented with chest discomfort and pain with light headedness. She was found to have acute renal failure # Atypical CP: 2 sets of troponin negative , EKG NSR, q wave in lead 3, PVCs, Echo is normal Mild TR # Acute renal failure IVF improving due to dehydration. will continue to hold Htcz, renal US : normal kidneys. # HTN Uncontrolled, will stop chlorthalidone will start her Norvasc 5mg po daily. # Acute dehydration on IVF continue ).9NS x 1 more liter # Patient states that she has some blood cancer but is being watched , was never treated for it. Home meds were reviewed with her and updated in EMR DVT Px: heparin sq Visit type - Emergency Visit Emergency Visit: Yes ED Registration Date: 03/09/17 Care time: The patient presented to the Emergency Department on the above date and was hospitalized for further evaluation of their emergent condition. - New Patient This patient is new to me today: No - Critical Care Critical Care patient: No
[2017-03-12 14:37] LABS: ALBUMIN 3.1 g/dl (3.4-5.0); ANION GAP 5 (8-16); BILIRUBIN,TOTAL 0.3 mg/dL (0.2-1.0); CALCIUM 8.6 mg/dL (8.5-10.1); CO2 26 mmol/L (21-32); CREATININE 1.6 mg/dL (0.55-1.02); GLUCOSE,RANDOM 102 mg/dL (74-106); SGOT/AST 8 U/L (15-37); SGPT/ALT 19 U/L (12-78); TOT PROT 7.2 g/dl (6.4-8.2)
[2017-03-12 14:38] LABS: ALK PHOS 94 U/L (45-117)
[2017-03-12] MEDS ORDERED: SODIUM CHLORIDE 1,000 ML IV SCH (15:15)
[2017-03-12] MEDS: amLODIPine BESYLATE 5 MG TABLET (FP) PO SCH (16:37)
[2017-03-12] MEDS: LATANOPROST 0.005% OPHTH SOLN 2.5ML BOTTLE OU SCH (21:22)
[2017-03-13] MEDS: HEPARIN NA (PORCINE) 5,000 UNITS/ML 1ML VIAL SQ SCH (05:05)
--- NOTE | 2017-03-13 07:56 | PN ---
Teaching Attending Note Name of Resident: Monique Botello ATTENDING PHYSICIAN STATEMENT I saw and evaluated the patient. I reviewed the resident's note and discussed the case with the resident. I agree with the resident's findings and plan as documented. SUBJECTIVE: Patient is feeling better, has no complains. OBJECTIVE: Vital Signs Temperature 97.6 F 03/13/17 06:00 Pulse Rate 63 03/13/17 06:00 Respiratory Rate 18 03/13/17 06:00 Blood Pressure 119/83 03/13/17 06:00 O2 Sat by Pulse Oximetry (%) 100 03/12/17 21:00 CBCD WBC 7.6 K/mm3 (4.0-10.0) 03/10/17 07:30 RBC 3.30 M/mm3 (3.60-5.2) L 03/10/17 07:30 Hgb 10.2 GM/dL (10.7-15.3) L 03/10/17 07:30 Hct 30.5 % (32.4-45.2) L 03/10/17 07:30 MCV 92.4 fl (80-96) 03/10/17 07:30 MCHC 33.4 g/dl (32.0-36.0) 03/10/17 07:30 RDW 13.4 % (11.6-15.6) 03/10/17 07:30 Plt Count 216 K/MM3 (134-434) 03/10/17 07:30 MPV 9.0 fl (7.5-11.1) 03/10/17 07:30 CMP Sodium 141 mmol/L (136-145) 03/13/17 06:10 Potassium 4.5 mmol/L (3.5-5.1) 03/13/17 06:10 Chloride 112 mmol/L (98-107) H 03/13/17 06:10 Carbon Dioxide 22 mmol/L (21-32) 03/13/17 06:10 Anion Gap 7 (8-16) L 03/13/17 06:10 BUN 17 mg/dL (7-18) 03/13/17 06:10 Creatinine 1.3 mg/dL (0.55-1.02) H 03/13/17 06:10 Creat Clearance w eGFR 31.96 (>60) 03/12/17 14:02 Random Glucose 95 mg/dL (74-106) 03/13/17 06:10 Calcium 8.6 mg/dL (8.5-10.1) 03/13/17 06:10 Total Bilirubin 0.3 mg/dL (0.2-1.0) D 03/12/17 14:02 AST 8 U/L (15-37) L D 03/12/17 14:02 ALT 19 U/L (12-78) 03/12/17 14:02 Alkaline Phosphatase 94 U/L (45-117) 03/12/17 14:02 Total Protein 7.2 g/dl (6.4-8.2) 03/12/17 14:02 Albumin 3.1 g/dl (3.4-5.0) L 03/12/17 14:02 CARDIAC ENZYMES Creatine Kinase 137 IU/L (26-192) 03/09/17 20:33 Troponin I < 0.02 ng/ml (0.00-0.05) 03/10/17 07:30 Current Medications Generic Name Dose Route Start Last Admin Trade Name Alice PRN Reason Stop Dose Admin Amlodipine Besylate 5 mg 03/12/17 15:15 03/12/17 16:37 Norvasc - PO Not Given DAILY JUICE Aspirin 81 mg 03/10/17 10:00 03/12/17 09:31 Asa - PO 81 mg DAILY JUICE Administration Heparin Sodium (Porcine) 5,000 unit 03/10/17 06:00 03/13/17 05:05 Heparin - SQ 5,000 unit TID JUICE Administration Latanoprost 1 drop 03/10/17 22:00 03/12/17 21:22 Xalatan 0.005% Eye Drops - OU 1 drop HS JUICE Administration Pantoprazole Sodium 40 mg 03/10/17 01:45 03/12/17 09:31 Protonix - PO 40 mg DAILY JUICE Administration Home Medications Medication Instructions Recorded Aspirin [ASA -] 81 mg PO DAILY 03/09/17 Chlorthalidone 25 mg PO DAILY 03/09/17 Latanoprost 2.5 ml OP HS 03/09/17 Omeprazole 20 mg PO DAILY 03/10/17 PE: as per resident's note. Assessment/Plan: Patient is a 71 y/o lady with h/o HTN, chronic synusitis , questionable blood disorder who presented with chest discomfort and pain with light headedness. She was found to have acute renal failure # Atypical CP: 2 sets of troponin negative , EKG NSR, q wave in lead 3, PVCs, Echo is normal Mild TR # Acute renal failure Cr. is 1.3 today .s/p IVFn, ARF improved due to dehydration. will discontinue Chlorthalidone . renal US : normal kidneys. # HTN Uncontrolled, will stop chlorthalidone will continue with Norvasc 5mg po daily since patient responded well to Norvasc. # Acute dehydration on IVF continue ).9NS x 1 more liter # Patient states that she has some blood cancer but is being watched , was never treated for it. Home meds were reviewed with her and updated in EMR will discharge patient home today. 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 repeat BMP in a week. being discharged on Norvasc 5mg po daily. discontinue Chlorthalidone.
[2017-03-13 08:44] LABS: ANION GAP 7 (8-16); CALCIUM 8.6 mg/dL (8.5-10.1); CO2 22 mmol/L (21-32); CREATININE 1.3 mg/dL (0.55-1.02); GLUCOSE,RANDOM 95 mg/dL (74-106)
[2017-03-13] MEDS: amLODIPine BESYLATE 5 MG TABLET (FP) PO SCH (09:34)
[2017-03-13] MEDS: PANTOPRAZOLE 40 MG TABLET (FP) PO SCH (09:34)
[2017-03-13] MEDS: ASPIRIN 81 MG CHEWABLE TABLETS PO SCH (09:34)
--- NOTE | 2017-03-13 09:50 | DS ---
Physical Exam: SUBJECTIVE: Patient seen and examined. Pt feels fine today and is ready to go home. Pt denies fever, chills, chest pain, palpitations, lightheadedness, sob, abdominal pain. No events overnight. OBJECTIVE: Vital Signs Period Temp Pulse Resp BP Sys/Crane Pulse Ox Last 24 Hr 97.6 F-98.3 F 63-75 18-20 112-153/70-87 100 PHYSICAL EXAM GENERAL: The patient is awake, alert, and fully oriented, in no acute distress. HEAD: Normal with no signs of trauma. EYES: Extraocular movements intact, sclera anicteric, conjunctiva clear. ENT: Moist mucous membranes. NECK: Trachea midline, supple. LUNGS: Breath sounds equal, clear to auscultation bilaterally, no wheezes, no crackles, no accessory muscle use. HEART: Regular rate and rhythm, S1, S2 without murmur, rub or gallop. ABDOMEN: Soft, nontender, nondistended, normoactive bowel sounds, no guarding. EXTREMITIES: Warm, well-perfused, no edema. NEUROLOGICAL: Cranial nerves II through XII grossly intact. Normal speech, gait not observed. PSYCH: Normal mood, normal affect. SKIN: Warm, dry, normal turgor, no rashes or lesions noted. LABS Laboratory Results - last 24 hr 03/12/17 03/13/17 14:02 06:10 Sodium 140 141 Potassium 4.2 4.5 Chloride 109 H 112 H Carbon Dioxide 26 22 Anion Gap 5 L 7 L BUN 17 D 17 Creatinine 1.6 H 1.3 H Creat Clearance w eGFR 31.96 Random Glucose 102 95 Calcium 8.6 8.6 Total Bilirubin 0.3 D AST 8 L D ALT 19 Alkaline Phosphatase 94 Total Protein 7.2 Albumin 3.1 L HOSPITAL COURSE: Date of Admission:03/09/17 Date of Discharge: 03/13/17 71yo F with PMH of htn, chronic sinusitis, presented with substernal chest pain , found to have JEOVANNY. ACS ruled out 2/2 chest pain resolved, trops (-) x 2, EKG revealed NSR. JEOVANNY improved with hydration and Chlorthalidone D/Daniel. 03/09/[address] -> no acute intracranial pathology. Small amount of fluid in Left mastoid air cells inferiorly. 03/09/17 CXR -> no acute pathology 03/10/17 Vascular Study -> no DVTs in isaias LE 03/11/17 Renal US -> morphologically normal kidneys with no evidence of hydronephrosis or acute pathology. 03/11/17 Echo -> normal Left ventricular systolic function. Pt independent for ADLs. Pt stable for discharge home. Minutes to complete discharge: 35 <Monique Botello - Last Filed: 03/13/17 09:45> Physical Exam: SUBJECTIVE: Patient seen and examined Patient was sent home on Norvasc 5mg and follow up with her primary clinician and was suggested to drink more fluid and have BMP repeated in a week. <Clem Santos - Last Filed: 03/15/17 08:37> Discharge Summary Reason For Visit: PRE SYNCOPE Current Active Problems Near syncope (Acute) - Home Medications Comprehensive Discharge Medication List: Ambulatory Orders Aspirin [ASA -] 81 mg PO DAILY 03/09/17 Latanoprost 2.5 ml OP HS 03/09/17 Omeprazole 20 mg PO DAILY 03/10/17 Amlodipine Besylate [Norvasc -] 5 mg PO DAILY #30 tablet 03/13/17 <Monique Botello - Last Filed: 03/13/17 09:45> - Home Medications Comprehensive Discharge Medication List: Ambulatory Orders Aspirin [ASA -] 81 mg PO DAILY 03/09/17 Latanoprost 2.5 ml OP HS 03/09/17 Omeprazole 20 mg PO DAILY 03/10/17 Amlodipine Besylate [Norvasc -] 5 mg PO DAILY #30 tablet 03/13/17 <Clem Santos - Last Filed: 03/15/17 08:37> Condition: Stable - Instructions Diet, Activity, Other Instructions: You were treated for acute kidney injury likely caused by dehydration. Please continue your home medications as directed. Drink plenty of water and follow-up with your primary care physician (Dr. Soares) in one week for further post-hospital evaluation. Do not continue Chlorthalidone medication. and please let your doctor be aware of that. If you develop chest pain, syncope, palpitations, diarrhea, vomiting, fevers or any new symptoms please return to the hospital. Disposition: HOME This patient is new to me today: No Emergency Visit: Yes ED Registration Date: 03/09/17 Care time: The patient presented to the Emergency Department on the above date and was hospitalized for further evaluation of their emergent condition. Critical Care patient: No - Discharge Referral Referred to [facility] No <Monique Botello - Last Filed: 03/13/17 09:45>
[2017-03-13 10:12] VITALS: BP 155/86; PULSE 82; TEMP 98.2
== END 2017-03-13 11:55 | disposition home or self-care (01) | DRG 683 ==
LOC: JER 20:05 → JERBED 23:35 → UNDOADMIN 23:52 → J4S 03-10 03:23
PROVIDERS: ADMIT Internal Medicine; ATTEND Internal Medicine
DX: N17.9 Acute kidney failure, unspecified (principal); Z68.41 Body mass index [BMI] 40.0-44.9, adult; R55 Syncope and collapse; R07.89 Other chest pain; I10 Essential (primary) hypertension; K21.9 Gastro-esophageal reflux disease without esophagitis; H40.9 Unspecified glaucoma; J32.9 Chronic sinusitis, unspecified; E86.0 Dehydration; E66.9 Obesity, unspecified; C76.8 Malignant neoplasm of other specified ill-defined sites
CPT/HCPCS: 36415; 70450-TC; 71010-TC; 76775-TC; 80048; 80053; 81003; 82550; 82570; 83690; 83735; 84100; 84300; 84484; 84540; 85025; 85027; 85610; 86850; 86900; 86901; 93005; 93010; 93306-TC; 93970-TC; 99285-25; J1644